=== PATIENT | male | born 1945 | race Caucasian/White ===

== ENCOUNTER 2016-07-21 21:36 | Emergency (ER) | payer MEDICARE, OTHER ==
--- NOTE | ~2016-07-21 | ER ---
PATIENT'S NAME: JANUSZ WINN [facility] AGE: 70 Y [address] ROOM: [place] [address] LOCATION: [facility] ADMIT DATE: 07/21/2016 ER/Outpatient Report DISCHARGE DATE: 07/21/2016 FAMILY PHYSICIAN: Navin Sainz MD ATTENDING PHYSICIAN: Glenda Cantor TIME OF ARRIVAL: 2136 hours. TIME SEEN: 2150 hours. IDENTIFICATION: A 70-year-old male. CHIEF COMPLAINT: Toothache. HISTORY OF PRESENT ILLNESS: The patient is a 70-year-old male who has had tooth pain since Wednesday. He describes it as a toothache that was acute onset on Wednesday. Severe pain. He was seen by Dr. Cordova on Wednesday. Saw Dr. Mahan today and had a tooth extracted and now continues to have extreme pain despite taking Advil, Tylenol, or [place], no fever or chills, no bleeding, no other problems or concerns, and this is the pain he was having even before the extraction. When I asked him to describe it, he says "it is a toothache," I do not get anymore description than that out of him. When I ask him where it is, it kind of starts in the right lower jaw and radiates and works its way up into his right cheek. No fever or chills. No systemic symptoms. He has had some nausea now because the pain has been so bad. ALLERGIES: NO KNOWN DRUG ALLERGIES. CURRENT MEDICATIONS: 1. Coreg 3.125 mg b.i.d. 2. Allopurinol 300 mg daily. 3. Warfarin 5 mg Wednesday, Wednesday, Wednesday, Wednesday, Wednesday, 7.5 mg Wednesday, . 4. Lasix 40 mg daily. 5. Aldactone has been held for 3 days and the Coumadin was held yesterday and today for the tooth extraction. MEDICAL PROBLEMS: Gout, dilated cardiomyopathy and third-degree heart block, status post PATIENT'S NAME: JANUSZ WINN [facility] AGE: 70 Y [address] ROOM: [place] [address] LOCATION: ED ADMIT DATE: 07/21/2016 ER/Outpatient Report DISCHARGE DATE: 07/21/2016 FAMILY PHYSICIAN: Navin Sainz MD ATTENDING PHYSICIAN: Glenda Cantor biventricular defibrillator, pacemaker, November of 2009, and CHF. PRIOR SURGERIES: Pacemaker AICD. SOCIAL HISTORY: The patient lives here in town, works as a realtor, he is . Tobacco use, denies. Alcohol use, denies. Drug use, denies. REVIEW OF SYSTEMS: All systems reviewed and negative other than what is noted in the HPI. PHYSICAL EXAMINATION: VITAL SIGNS: Height 5 feet, 1 inch, weight 101 kg, blood pressure 164/100, pulse 76, respirations 18, temperature 97, and sats 96% on room air. GENERAL: A 70-year-old male in no acute distress at this time. When he checked in, he had a 6/10 pain and when I saw him he had 2/10 pain, and his pain completely resolved while we are talking. HEENT: Head: Normocephalic, atraumatic. Ears: TMs translucent both ears. Eyes: Pupils equal and reactive to light and accommodation. Extraocular movements intact. Nose: Mucosa pink. No lesions. Mouth: No lesions. Pharynx benign. Tooth extraction site clear, no active bleeding. No tenderness to palpation of his cheek. No swelling or redness. NECK: Supple. No lymphadenopathy. IMPRESSION: 1. Dental pain. 2. Nausea. PLAN: An IV was initiated. The patient was given morphine and Zofran. He was observed. He continued to have 0 pain and was discharged home. Soft diet. Home to rest. Pain meds only as directed and follow up with Dr. Mahan in the morning. The patient's spouse called back later stating that he was nauseous and vomited up on his medications about 3 a.m. I did call a prescription for Zofran to [facility] 4 mg 1 p.o. q.6 h. ODT p.r.n. dispensed 10 with 0 refills and follow up with Dr. Mahan in the morning and follow up sooner if any problems or concerns. GLENDA CANTOR MD CAR/modl PATIENT'S NAME: JANUSZ WINN [facility] AGE: 70 Y [address] ROOM: [place] [address] LOCATION: [facility] ADMIT DATE: 07/21/2016 ER/Outpatient Report DISCHARGE DATE: 07/21/2016 FAMILY PHYSICIAN: Navin Sainz MD ATTENDING PHYSICIAN: Glenda Cantor /[id number] d: 07/22/1615 t: 07/22/16 0549, OUTPATIENT REPORT
== END 2016-07-21 23:07 | disposition disaster alternative care site (69) ==
LOC: GMED 21:36
DX: K08.89 Other specified disorders of teeth and supporting structures (principal); R11.0 Nausea; M10.9 Gout, unspecified; I42.0 Dilated cardiomyopathy; I44.2 Atrioventricular block, complete; I50.9 Heart failure, unspecified; F17.200 Nicotine dependence, unspecified, uncomplicated; Z95.810 Presence of automatic (implantable) cardiac defibrillator; Z79.899 Other long term (current) drug therapy; Z79.01 Long term (current) use of anticoagulants; Z95.0 Presence of cardiac pacemaker
CPT/HCPCS: J2270; J2405